=== PATIENT | male | born 1945 | race African-American/Black ===

== ENCOUNTER 2022-07-26 05:38 | Inpatient (IN) ==
[2022-07-18 13:31] LABS: Basophils % 0.3 % (0.0-0.8); Eosinophils # 0.1 10*3/uL (0.0-0.87); Hematocrit 26.7 VOL% (42.0-52.0); Hemoglobin 7.3 GM/DL (14.0-18.0); Immature Granulocytes % 0.3 %; Immature Granulocytes Absolute 0.02 #; Lymphocytes # 1.6 10*3/uL (1.4-4.0); Lymphocytes % 22.5 % (21.2-54.2); Mean Corpuscular HGB Conc 27.3 GM/DL (32-36); Mean Corpuscular Volume 82.4 FL (87-102); Mean Platelet Volume 12.3 FL (9.6-12.0); Monocytes # 0.7 10*3/uL (0.11-0.8); Monocytes % 9.6 % (1.7-12.7); Neutrophils % 65.3 % (38.7-73.9); Platelet Count 241 T/CUMM (130-400); Red Blood Count 3.24 MC/CUMM (3.8-5.5); Red Cell Distribution Width 19.8 % (9.3-17.3); White Blood Count 7.1 T/CUMM (4-12)
[2022-07-18 13:48] LABS: Anisocytosis 1+; Macrocytosis 1+; Microcytosis 1+; Platelet Estimate Adequate; Target Cells Slight
[2022-07-18 13:49] LABS: Hypochromia 1+
[2022-07-18 13:50] LABS: Poikilocytosis Slight
[2022-07-18 13:51] LABS: Calcium 8.4 MG/DL (8.5-10.1)
[2022-07-26] MEDS ORDERED: SODIUM CHLORIDE 0.9% 1,000 ML IV PRN (05:47)
[2022-07-26] MEDS ORDERED: LACTATED RINGERS 1,000 ML IV SCH (06:00)
[2022-07-26] MEDS ORDERED: ERTAPENEM 1,000 MG in SODIUM CHLORIDE 0.9% 100 ML IV ONE (06:00)
[2022-07-26 06:21] LABS: Alanine Aminotransferase 20 U/L (16-61); Albumin 3.6 G/DL (3.4-5.0); Alkaline Phosphatase 79 U/L (45-117); Aspartate Amino Transferase 15 U/L (0-37); Bilirubin,Total < 0.39 MG/DL (0.20-1.00); Blood Urea Nitrogen 14 MG/DL (7-18); Calcium 8.8 MG/DL (8.5-10.1); Carbon Dioxide 27 MMOL/L (21-32); Chloride 111 MMOL/L (98-107); Glucose 109 MG/DL (74-106); Potassium 3.9 MMOL/L (3.5-5.1); Sodium 143 MMOL/L (136-145); Total Protein 7.9 G/DL (6.4-8.2)
[2022-07-26] MEDS ORDERED: TISSUE ADHESIVE 1 EACH APPLICATOR TOP ONE (06:23)
[2022-07-26 06:25] LABS: Basophils % 0.3 % (0.0-0.8); Eosinophils # 0.2 10*3/uL (0.0-0.87); Eosinophils % 2.5 % (0.00-10.9); Hemoglobin 7.2 GM/DL (14.0-18.0); Immature Granulocytes % 0.6 %; Immature Granulocytes Absolute 0.04 #; Lymphocytes # 1.8 10*3/uL (1.4-4.0); Lymphocytes % 25.5 % (21.2-54.2); Mean Corpuscular HGB Conc 27.2 GM/DL (32-36); Mean Corpuscular Volume 81.3 FL (87-102); Mean Platelet Volume 10.8 FL (9.6-12.0); Monocytes # 0.7 10*3/uL (0.11-0.8); Monocytes % 10.4 % (1.7-12.7); Neutrophils % 60.7 % (38.7-73.9); Platelet Count 217 T/CUMM (130-400); Red Blood Count 3.26 MC/CUMM (3.8-5.5); Red Cell Distribution Width 19.7 % (9.3-17.3); White Blood Count 6.9 T/CUMM (4-12)
[2022-07-26 06:27] LABS: Hematocrit 26.5 VOL% (42.0-52.0)
[2022-07-26 06:33] LABS: Eosinophils 1 % (0-10); Lymphocytes 18 % (20-55); Platelet Estimate Adequate; Total Cells Counted 100
[2022-07-26] MEDS ORDERED: GABAPENTIN 400 MG CAPSULE PO ONE (06:33)
[2022-07-26] MEDS ORDERED: DIAZEPAM 5 MG TABLET PO ONE (06:33)
[2022-07-26] MEDS ORDERED: ACETAMINOPHEN 500 MG TABLET PO ONE (06:33)
[2022-07-26] MEDS ORDERED: FAMOTIDINE 20 MG TABLET PO ONE (06:33)
[2022-07-26 06:34] LABS: Hypochromia Slight; Microcytosis Slight
[2022-07-26] MEDS ORDERED: ROCURONIUM 50 MG/5 ML VIAL IV ONE ×2 (06:34→09:42)
[2022-07-26] MEDS ORDERED: fentaNYL 100 MCG/2 ML VIAL ONE ×2 (06:34→09:42)
[2022-07-26] MEDS ORDERED: LIDOCAINE 2% 5 ML VIAL ONE (06:34)
[2022-07-26] MEDS ORDERED: SEVOFLURANE 1 UNIT/15 MINUTE INH ONE ×8 (06:34→10:03)
[2022-07-26] MEDS ORDERED: propofoL 200 MG/20 ML VIAL IV ONE (06:34)
[2022-07-26] MEDS ORDERED: ONDANSETRON 4 MG/2 ML VIAL ONE ×2 (06:34→10:35)
[2022-07-26] MEDS ORDERED: LIDOCAINE 1% 5 ML VIAL ONE (06:56)
[2022-07-26] MEDS ORDERED: ROPIVACAINE 0.5% 30 ML VIAL ONE (06:56)
[2022-07-26] MEDS ORDERED: DEXAMETHASONE 4 MG/1 ML VIAL ONE (06:56)
[2022-07-26] MEDS ORDERED: MIDAZOLAM 2 MG/2 ML VIAL ONE (07:31)
[2022-07-26] MEDS ORDERED: INDOCYANINE GREEN 25 MG VIAL IV ONE (07:52)
[2022-07-26] MEDS ORDERED: SODIUM CHLORIDE 0.9% 1,000 ML IV ONE (10:03)
[2022-07-26] MEDS ORDERED: NEOSTIGMINE 10 MG/10 ML VIAL ONE (10:33)
[2022-07-26] MEDS ORDERED: PHENYLEPHRINE 1 MG/10 ML SYRINGE IV ONE (10:33)
[2022-07-26] MEDS ORDERED: GLYCOPYRROLATE 0.4 MG/2 ML VIAL ONE (10:33)
[2022-07-26] MEDS ORDERED: ONDANSETRON 4 MG/2 ML VIAL IV PRN ×2 (11:09→11:16)
[2022-07-26] MEDS ORDERED: HYDROmorphone 1 MG/1 ML SYRINGE IV PRN ×3 (11:09→11:16)
[2022-07-26] MEDS ORDERED: ACETAMINOPHEN 325 MG TABLET PO PRN (11:16)
[2022-07-26] MEDS ORDERED: KETOROLAC 15 MG/1 ML VIAL IV PRN (11:16)
[2022-07-26 11:20] LABS: Bacteria,Urine Occasional /HPF (Few); Mucus,Urine Occasional /LPF (Occasional); RBC,Urine 1 /HPF (0-4)
[2022-07-26 11:25] LABS: Bilirubin,Urine Negative (Negative); Blood, Urine Negative (Negative); Glucose,Urine (UA) Negative (Negative); Ketones,Urine Negative (Negative); Nitrite,Urine Negative (Negative); Protein,Urine Negative (Negative); Urine Appearance Clear (Clear); Urine Color Light Yellow (Yellow); Urine Urobilinogen 0.2 eU/dL (<2.0)
[2022-07-26 11:45] LABS: Hematocrit 33.8 VOL% (42.0-52.0); Hemoglobin 9.5 GM/DL (14.0-18.0)
[2022-07-26] MEDS: LACTATED RINGERS 1,000 ML IV SCH (11:45)
[2022-07-27] MEDS: LACTATED RINGERS 1,000 ML IV SCH ×4 (03:35→23:05)
[2022-07-27 05:02] LABS: Basophils % 0.2 % (0.0-0.8); Eosinophils % 0.1 % (0.00-10.9); Hematocrit 27.8 VOL% (42.0-52.0); Immature Granulocytes % 0.4 %; Immature Granulocytes Absolute 0.05 #; Lymphocytes # 0.9 10*3/uL (1.4-4.0); Lymphocytes % 7.6 % (21.2-54.2); Mean Corpuscular HGB Conc 28.8 GM/DL (32-36); Mean Corpuscular Volume 81.8 FL (87-102); Mean Platelet Volume 11.6 FL (9.6-12.0); Monocytes # 0.8 10*3/uL (0.11-0.8); Neutrophils % 84.7 % (38.7-73.9); Platelet Count 181 T/CUMM (130-400); Red Cell Distribution Width 18.4 % (9.3-17.3); White Blood Count 11.7 T/CUMM (4-12)
[2022-07-27 05:20] LABS: Calcium 7.8 MG/DL (8.5-10.1); Osmolality,Calculated 286.8 MOS/KG (273-304); Potassium 3.7 MMOL/L (3.5-5.1)
[2022-07-27 05:32] LABS: Hypochromia 1+; Microcytosis 1+; Target Cells Slight
[2022-07-27] MEDS: PANTOPRAZOLE 40 MG VIAL IV SCH (08:07)
[2022-07-27] MEDS ORDERED: FLUTICASONE 50 MCG NASAL SPRAY 16 GM BOTTLE BOTH NARES PRN (12:41)
[2022-07-27] MEDS: hydrALAZINE 25 MG TABLET PO SCH (20:27)
[2022-07-28] MEDS: LEVOTHYROXINE 75 MCG TABLET PO SCH (06:26)
[2022-07-28] MEDS: LACTATED RINGERS 1,000 ML IV SCH ×2 (06:28→15:26)
[2022-07-28 06:45] LABS: Calcium 8.4 MG/DL (8.5-10.1); Osmolality,Calculated 278.4 MOS/KG (273-304); Potassium 3.7 MMOL/L (3.5-5.1)
[2022-07-28 06:53] LABS: Basophils % 0.2 % (0.0-0.8); Eosinophils % 0.3 % (0.00-10.9); Hematocrit 30.2 VOL% (42.0-52.0); Hemoglobin 8.7 GM/DL (14.0-18.0); Immature Granulocytes % 0.5 %; Immature Granulocytes Absolute 0.06 #; Lymphocytes # 0.9 10*3/uL (1.4-4.0); Mean Corpuscular HGB Conc 28.8 GM/DL (32-36); Mean Corpuscular Volume 81.6 FL (87-102); Mean Platelet Volume 12.6 FL (9.6-12.0); Monocytes # 0.9 10*3/uL (0.11-0.8); Monocytes % 7.7 % (1.7-12.7); Neutrophils % 83.3 % (38.7-73.9); Platelet Count 207 T/CUMM (130-400); Red Cell Distribution Width 18.4 % (9.3-17.3); White Blood Count 11.4 T/CUMM (4-12)
[2022-07-28 06:57] LABS: Anisocytosis 1+; Platelet Estimate Normal; Target Cells Few
[2022-07-28 08:09] LABS: Hypochromia 1+; Macrocytosis 1+
[2022-07-28] MEDS: hydrALAZINE 25 MG TABLET PO SCH ×2 (09:23→20:30)
[2022-07-28] MEDS: PANTOPRAZOLE 40 MG VIAL IV SCH (09:23)
[2022-07-28] MEDS: DEXT 5% NACL 0.45% KCL 40 MEQ 40 MEQ/1,000 ML BAG IV SCH (15:30)
[2022-07-28] MEDS: ENOXAPARIN 40 MG/0.4 ML SYRINGE SUBCUT SCH (20:30)
[2022-07-29] MEDS: DEXT 5% NACL 0.45% KCL 40 MEQ 40 MEQ/1,000 ML BAG IV SCH ×2 (01:48→16:11)
[2022-07-29] MEDS: LEVOTHYROXINE 75 MCG TABLET PO SCH (05:53)
[2022-07-29] MEDS: hydrALAZINE 25 MG TABLET PO SCH ×2 (08:53→20:40)
[2022-07-29] MEDS: PANTOPRAZOLE 40 MG VIAL IV SCH (08:53)
[2022-07-29] MEDS: ENOXAPARIN 40 MG/0.4 ML SYRINGE SUBCUT SCH (20:41)
[2022-07-30] MEDS: DEXT 5% NACL 0.45% KCL 40 MEQ 40 MEQ/1,000 ML BAG IV SCH (03:27)
[2022-07-30] MEDS: LEVOTHYROXINE 75 MCG TABLET PO SCH (06:11)
[2022-07-30] MEDS: PANTOPRAZOLE 40 MG VIAL IV SCH (08:37)
[2022-07-30] MEDS: hydrALAZINE 25 MG TABLET PO SCH ×2 (08:37→20:41)
[2022-07-30] MEDS: CALCIUM CARBONATE CHEW 500 MG TABLET PO PRN ×2 (13:12→20:46)
[2022-07-30] MEDS: DOCUSATE SODIUM 100 MG CAPSULE PO SCH (20:41)
[2022-07-30] MEDS: ENOXAPARIN 40 MG/0.4 ML SYRINGE SUBCUT SCH (20:42)
[2022-07-31] MEDS: CALCIUM CARBONATE CHEW 500 MG TABLET PO PRN (01:57)
[2022-07-31] MEDS: LEVOTHYROXINE 75 MCG TABLET PO SCH (06:10)
[2022-07-31 07:51] LABS: Calcium 8.7 MG/DL (8.5-10.1); Potassium 4.3 MMOL/L (3.5-5.1)
[2022-07-31 07:59] LABS: Basophils % 0.2 % (0.0-0.8); Eosinophils # 0.2 10*3/uL (0.0-0.87); Eosinophils % 1.7 % (0.00-10.9); Hematocrit 32.3 VOL% (42.0-52.0); Hemoglobin 9.3 GM/DL (14.0-18.0); Immature Granulocytes % 0.5 %; Immature Granulocytes Absolute 0.05 #; Lymphocytes # 0.7 10*3/uL (1.4-4.0); Lymphocytes % 6.4 % (21.2-54.2); Mean Corpuscular HGB Conc 28.8 GM/DL (32-36); Mean Platelet Volume 11.3 FL (9.6-12.0); Monocytes % 9.8 % (1.7-12.7); Neutrophils % 81.4 % (38.7-73.9); Platelet Count 303 T/CUMM (130-400); Red Blood Count 4.04 MC/CUMM (3.8-5.5); Red Cell Distribution Width 18.5 % (9.3-17.3); White Blood Count 10.3 T/CUMM (4-12)
[2022-07-31 08:10] LABS: Platelet Estimate Normal
[2022-07-31 08:11] LABS: Anisocytosis 1+; Macrocytosis Slight; Poikilocytosis Slight
[2022-07-31] MEDS: PANTOPRAZOLE 40 MG VIAL IV SCH (09:04)
[2022-07-31] MEDS: hydrALAZINE 25 MG TABLET PO SCH ×2 (09:06→20:48)
[2022-07-31] MEDS: POLYETHYLENE GLYCOL POWDER 17 GM PACK PO SCH (09:06)
[2022-07-31] MEDS: DOCUSATE SODIUM 100 MG CAPSULE PO SCH ×2 (09:06→21:04)
[2022-07-31] MEDS: LACTATED RINGERS 1,000 ML IV SCH (13:17)
[2022-07-31] MEDS: ENOXAPARIN 40 MG/0.4 ML SYRINGE SUBCUT SCH (20:49)
[2022-08-01] MEDS: LACTATED RINGERS 1,000 ML IV SCH ×3 (00:17→13:10)
[2022-08-01] MEDS: CALCIUM CARBONATE CHEW 500 MG TABLET PO PRN (00:40)
[2022-08-01] MEDS: LEVOTHYROXINE 75 MCG TABLET PO SCH (06:03)
[2022-08-01] MEDS: DOCUSATE SODIUM 100 MG CAPSULE PO SCH ×2 (13:07→20:53)
[2022-08-01] MEDS: hydrALAZINE 25 MG TABLET PO SCH ×2 (13:08→20:53)
[2022-08-01] MEDS: PANTOPRAZOLE 40 MG VIAL IV SCH (13:10)
[2022-08-01] MEDS: POLYETHYLENE GLYCOL POWDER 17 GM PACK PO SCH (13:13)
[2022-08-01] MEDS: INSULIN REGULAR 100 UNIT/ML SUBCUT SCH ×2 (14:02→17:21)
[2022-08-01] MEDS: FAT EMULSION 20% 250 ML IV SCH (14:04)
[2022-08-01] MEDS ORDERED: DEXTROSE 10% 1,000 ML IV PRN (17:00)
[2022-08-01] MEDS ORDERED: MULTIVITAMIN INJ 10 ML in AMINO ACIDS/DEXT/LYTES 5-15% 1,000 ML IV SCH (17:00)
[2022-08-01] MEDS: ENOXAPARIN 40 MG/0.4 ML SYRINGE SUBCUT SCH (21:21)
[2022-08-02] MEDS: LACTATED RINGERS 1,000 ML IV SCH ×3 (00:44→17:21)
[2022-08-02] MEDS: INSULIN REGULAR 100 UNIT/ML SUBCUT SCH ×4 (01:30→18:10)
[2022-08-02 05:15] LABS: Basophils % 0.1 % (0.0-0.8); Eosinophils % 0.4 % (0.00-10.9); Hematocrit 29.4 VOL% (42.0-52.0); Hemoglobin 8.5 GM/DL (14.0-18.0); Immature Granulocytes % 0.5 %; Immature Granulocytes Absolute 0.04 #; Lymphocytes # 0.6 10*3/uL (1.4-4.0); Lymphocytes % 7.5 % (21.2-54.2); Mean Corpuscular HGB Conc 28.9 GM/DL (32-36); Mean Corpuscular Volume 78.6 FL (87-102); Mean Platelet Volume 10.9 FL (9.6-12.0); Monocytes # 0.9 10*3/uL (0.11-0.8); Monocytes % 10.5 % (1.7-12.7); Platelet Count 264 T/CUMM (130-400); Red Blood Count 3.74 MC/CUMM (3.8-5.5); White Blood Count 8.4 T/CUMM (4-12)
[2022-08-02 05:36] LABS: Calcium 8.2 MG/DL (8.5-10.1); Osmolality,Calculated 286.4 MOS/KG (273-304); Potassium 4.1 MMOL/L (3.5-5.1)
[2022-08-02 05:39] LABS: Phosphorous 3.4 MG/DL (2.5-4.9)
[2022-08-02 05:43] LABS: Band Neutrophils 9 % (0-10); Eosinophils 1 % (0-10); Lymphocytes 8 % (20-55); Total Cells Counted 100
[2022-08-02] MEDS: LEVOTHYROXINE 75 MCG TABLET PO SCH (05:43)
[2022-08-02 05:44] LABS: Platelet Estimate Normal
[2022-08-02] MEDS: POLYETHYLENE GLYCOL POWDER 17 GM PACK PO SCH (08:12)
[2022-08-02] MEDS: DOCUSATE SODIUM 100 MG CAPSULE PO SCH ×2 (08:12→20:07)
[2022-08-02] MEDS: PANTOPRAZOLE 40 MG VIAL IV SCH (09:19)
[2022-08-02] MEDS: hydrALAZINE 25 MG TABLET PO SCH ×2 (09:19→20:07)
[2022-08-02] MEDS ORDERED: ROCURONIUM 50 MG/5 ML VIAL IV ONE (13:32)
[2022-08-02] MEDS ORDERED: propofoL 200 MG/20 ML VIAL IV ONE (13:32)
[2022-08-02] MEDS ORDERED: SEVOFLURANE 1 UNIT/15 MINUTE INH ONE (13:32)
[2022-08-02] MEDS ORDERED: ONDANSETRON 4 MG/2 ML VIAL ONE (13:32)
[2022-08-02] MEDS ORDERED: KETAMINE 500 MG/10 ML VIAL ONE (13:32)
[2022-08-02] MEDS ORDERED: SUCCINYLCHOLINE 200 MG/10 ML VIAL ONE (13:32)
[2022-08-02] MEDS ORDERED: fentaNYL 100 MCG/2 ML VIAL ONE (13:32)
[2022-08-02] MEDS ORDERED: LIDOCAINE 2% 5 ML VIAL ONE (13:32)
[2022-08-02] MEDS ORDERED: ETOMIDATE 40 MG/20 ML VIAL IV ONE (13:33)
[2022-08-02] MEDS ORDERED: ceFAZolin 1,000 MG VIAL ONE (14:23)
[2022-08-02] MEDS ORDERED: SUGAMMADEX 200 MG/2 ML VIAL IV ONE (14:40)
[2022-08-02] MEDS ORDERED: LIDOCAINE 1% 5 ML VIAL ONE (14:40)
[2022-08-02] MEDS ORDERED: chlorproMAZINE INJ 25 MG in SODIUM CHLORIDE 0.9% 100 ML IV PRN (16:03)
[2022-08-02 16:19] LABS: Glucose,Urine (UA) Negative (Negative); Ketones,Urine Negative (Negative); Nitrite,Urine Negative (Negative); Protein,Urine 30 mg/dL (Negative); RBC,Urine <1 /HPF (0-4); Squamous Epithelial Cell,Urine Occasional /HPF (0-10); Urine Appearance Clear (Clear); Urine Color Yellow (Yellow); Urine Specific Gravity 1.015 (1.001-1.035); Urine pH 5.5 (4.5-8.0)
[2022-08-02 16:20] LABS: Bilirubin,Urine Negative (Negative); Blood, Urine Negative (Negative); Urine Urobilinogen 0.2 eU/dL (<2.0)
[2022-08-02] MEDS: MULTIVITAMIN INJ 10 ML in AMINO ACIDS/DEXT/LYTES 5-15% 2,000 ML IV SCH (17:00)
[2022-08-02] MEDS: FAT EMULSION 20% 250 ML IV SCH (17:20)
[2022-08-02] MEDS: ENOXAPARIN 40 MG/0.4 ML SYRINGE SUBCUT SCH (20:07)
[2022-08-03] MEDS: INSULIN REGULAR 100 UNIT/ML SUBCUT SCH ×5 (00:02→23:41)
[2022-08-03] MEDS: LACTATED RINGERS 1,000 ML IV SCH ×3 (00:02→16:08)
[2022-08-03 05:06] LABS: Basophils % 0.1 % (0.0-0.8); Eosinophils # 0.1 10*3/uL (0.0-0.87); Eosinophils % 1.2 % (0.00-10.9); Hematocrit 26.2 VOL% (42.0-52.0); Hemoglobin 7.4 GM/DL (14.0-18.0); Immature Granulocytes % 0.5 %; Immature Granulocytes Absolute 0.04 #; Lymphocytes # 0.7 10*3/uL (1.4-4.0); Lymphocytes % 8.2 % (21.2-54.2); Mean Corpuscular HGB Conc 28.2 GM/DL (32-36); Mean Corpuscular Volume 81.6 FL (87-102); Mean Platelet Volume 11.3 FL (9.6-12.0); Monocytes # 0.7 10*3/uL (0.11-0.8); Monocytes % 9.2 % (1.7-12.7); Neutrophils % 80.8 % (38.7-73.9); Platelet Count 223 T/CUMM (130-400); Red Blood Count 3.21 MC/CUMM (3.8-5.5); Red Cell Distribution Width 19.4 % (9.3-17.3); White Blood Count 8.1 T/CUMM (4-12)
[2022-08-03] MEDS: LEVOTHYROXINE 75 MCG TABLET PO SCH (05:40)
[2022-08-03 05:51] LABS: Band Neutrophils 3 % (0-10); Eosinophils 1 % (0-10); Lymphocytes 11 % (20-55); Platelet Estimate Adequate; Total Cells Counted 100
[2022-08-03 06:22] LABS: Potassium 4.4 MMOL/L (3.5-5.1)
[2022-08-03 06:24] LABS: Calcium 7.9 MG/DL (8.5-10.1)
[2022-08-03 06:25] LABS: Osmolality,Calculated 282.7 MOS/KG (273-304)
[2022-08-03] MEDS: POLYETHYLENE GLYCOL POWDER 17 GM PACK PO SCH ×2 (09:09→09:45)
[2022-08-03] MEDS: hydrALAZINE 25 MG TABLET PO SCH ×3 (09:09→22:50)
[2022-08-03] MEDS: DOCUSATE SODIUM 100 MG CAPSULE PO SCH ×3 (09:09→22:50)
[2022-08-03] MEDS: PANTOPRAZOLE 40 MG VIAL IV SCH (09:10)
[2022-08-03] MEDS ORDERED: HYDROmorphone 1 MG/1 ML SYRINGE IV PRN (10:21)
[2022-08-03] MEDS ORDERED: METOPROLOL TARTRATE 5 MG/5 ML VIAL IV PRN (10:21)
[2022-08-03] MEDS: FAT EMULSION 20% 250 ML IV SCH (14:04)
[2022-08-03] MEDS: MULTIVITAMIN INJ 10 ML in AMINO ACIDS/DEXT/LYTES 5-15% 2,000 ML IV SCH (16:09)
[2022-08-03] MEDS: ENOXAPARIN 40 MG/0.4 ML SYRINGE SUBCUT SCH (20:50)
[2022-08-04] MEDS: LACTATED RINGERS 1,000 ML IV SCH ×4 (00:02→16:27)
[2022-08-04] MEDS: INSULIN REGULAR 100 UNIT/ML SUBCUT SCH ×4 (05:52→23:44)
[2022-08-04 07:12] LABS: Basophils % 0.1 % (0.0-0.8); Eosinophils # 0.1 10*3/uL (0.0-0.87); Eosinophils % 0.7 % (0.00-10.9); Hematocrit 28.7 VOL% (42.0-52.0); Immature Granulocytes % 0.8 %; Immature Granulocytes Absolute 0.08 #; Lymphocytes # 0.7 10*3/uL (1.4-4.0); Lymphocytes % 6.9 % (21.2-54.2); Mean Corpuscular HGB Conc 28.2 GM/DL (32-36); Mean Corpuscular Volume 80.2 FL (87-102); Mean Platelet Volume 11.6 FL (9.6-12.0); Monocytes # 0.7 10*3/uL (0.11-0.8); Monocytes % 7.4 % (1.7-12.7); Neutrophils % 84.1 % (38.7-73.9); Platelet Count 279 T/CUMM (130-400); Red Blood Count 3.58 MC/CUMM (3.8-5.5); Red Cell Distribution Width 19.2 % (9.3-17.3); White Blood Count 9.8 T/CUMM (4-12)
[2022-08-04 07:14] LABS: Hemoglobin 8.1 GM/DL (14.0-18.0)
[2022-08-04 07:17] LABS: Eosinophils 1 % (0-10); Hypochromia Slight; Lymphocytes 3 % (20-55); Platelet Estimate Normal; Total Cells Counted 100
[2022-08-04 07:19] LABS: Calcium 7.9 MG/DL (8.5-10.1); Osmolality,Calculated 283.4 MOS/KG (273-304); Potassium 3.9 MMOL/L (3.5-5.1)
[2022-08-04] MEDS: LEVOTHYROXINE 75 MCG TABLET PO SCH (07:19)
[2022-08-04] MEDS: PANTOPRAZOLE 40 MG VIAL IV SCH ×2 (07:53→09:17)
[2022-08-04] MEDS: DOCUSATE SODIUM 100 MG CAPSULE PO SCH ×2 (09:17→20:40)
[2022-08-04] MEDS: POLYETHYLENE GLYCOL POWDER 17 GM PACK PO SCH (09:17)
[2022-08-04] MEDS: hydrALAZINE 25 MG TABLET PO SCH ×2 (09:17→20:39)
[2022-08-04] MEDS: FAT EMULSION 20% 250 ML IV SCH (15:44)
[2022-08-04] MEDS: MULTIVITAMIN INJ 10 ML in AMINO ACIDS/DEXT/LYTES 5-15% 2,000 ML IV SCH (15:45)
[2022-08-04] MEDS: ENOXAPARIN 40 MG/0.4 ML SYRINGE SUBCUT SCH (20:35)
[2022-08-05] MEDS: LACTATED RINGERS 1,000 ML IV SCH ×3 (00:20→20:57)
[2022-08-05 06:01] LABS: Calcium 7.8 MG/DL (8.5-10.1); Osmolality,Calculated 285.3 MOS/KG (273-304); Potassium 3.7 MMOL/L (3.5-5.1)
[2022-08-05 06:12] LABS: Basophils % 0.2 % (0.0-0.8); Eosinophils # 0.1 10*3/uL (0.0-0.87); Eosinophils % 0.8 % (0.00-10.9); Hematocrit 28.5 VOL% (42.0-52.0); Immature Granulocytes % 1.2 %; Immature Granulocytes Absolute 0.14 #; Lymphocytes # 0.8 10*3/uL (1.4-4.0); Mean Corpuscular HGB Conc 27.7 GM/DL (32-36); Mean Corpuscular Volume 81.2 FL (87-102); Mean Platelet Volume 11.8 FL (9.6-12.0); Monocytes # 0.9 10*3/uL (0.11-0.8); Monocytes % 7.7 % (1.7-12.7); Neutrophils % 83.1 % (38.7-73.9); Platelet Count 332 T/CUMM (130-400); Red Blood Count 3.51 MC/CUMM (3.8-5.5); Red Cell Distribution Width 19.5 % (9.3-17.3)
[2022-08-05 06:24] LABS: Hemoglobin 7.9 GM/DL (14.0-18.0)
[2022-08-05] MEDS: INSULIN REGULAR 100 UNIT/ML SUBCUT SCH ×3 (06:40→17:28)
[2022-08-05 07:06] LABS: Eosinophils 2 % (0-10); Hypochromia 1+; Lymphocytes 3 % (20-55); Polychromasia Slight; Total Cells Counted 100
[2022-08-05 07:07] LABS: Microcytosis 1+; Platelet Estimate Normal; Target Cells Slight
[2022-08-05] MEDS: LEVOTHYROXINE 75 MCG TABLET PO SCH (07:46)
[2022-08-05] MEDS: PIPERACILLIN/TAZOBACTAM 3,375 MG in SODIUM CHLORIDE 0.9% 100 ML IV SCH ×2 (09:56→17:43)
[2022-08-05] MEDS: hydrALAZINE 25 MG TABLET PO SCH ×2 (10:51→20:50)
[2022-08-05] MEDS: DOCUSATE SODIUM 100 MG CAPSULE PO SCH ×2 (10:51→20:50)
[2022-08-05] MEDS: POLYETHYLENE GLYCOL POWDER 17 GM PACK PO SCH (10:52)
[2022-08-05] MEDS: PANTOPRAZOLE 40 MG VIAL IV SCH (11:04)
[2022-08-05] MEDS: MULTIVITAMIN INJ 10 ML in AMINO ACIDS/DEXT/LYTES 5-15% 2,000 ML IV SCH (14:01)
[2022-08-05] MEDS: FAT EMULSION 20% 250 ML IV SCH (14:02)
[2022-08-05] MEDS: ENOXAPARIN 40 MG/0.4 ML SYRINGE SUBCUT SCH (20:51)
[2022-08-06] MEDS: PIPERACILLIN/TAZOBACTAM 3,375 MG in SODIUM CHLORIDE 0.9% 100 ML IV SCH ×3 (00:52→17:40)
[2022-08-06] MEDS: LACTATED RINGERS 1,000 ML IV SCH ×2 (00:52→10:37)
[2022-08-06] MEDS: INSULIN REGULAR 100 UNIT/ML SUBCUT SCH ×5 (01:11→23:48)
[2022-08-06] MEDS: LEVOTHYROXINE 75 MCG TABLET PO SCH (06:01)
[2022-08-06 06:13] LABS: Basophils % 0.2 % (0.0-0.8); Eosinophils # 0.2 10*3/uL (0.0-0.87); Eosinophils % 1.7 % (0.00-10.9); Immature Granulocytes % 1.7 %; Immature Granulocytes Absolute 0.16 #; Lymphocytes # 0.9 10*3/uL (1.4-4.0); Lymphocytes % 9.4 % (21.2-54.2); Mean Corpuscular HGB Conc 28.3 GM/DL (32-36); Mean Corpuscular Volume 81.1 FL (87-102); Mean Platelet Volume 11.7 FL (9.6-12.0); Monocytes # 0.9 10*3/uL (0.11-0.8); Monocytes % 9.4 % (1.7-12.7); Neutrophils % 77.6 % (38.7-73.9); Platelet Count 343 T/CUMM (130-400); Red Cell Distribution Width 19.5 % (9.3-17.3); White Blood Count 9.6 T/CUMM (4-12)
[2022-08-06 06:16] LABS: Hemoglobin 8.5 GM/DL (14.0-18.0)
[2022-08-06 06:33] LABS: Calcium 8.4 MG/DL (8.5-10.1); Osmolality,Calculated 284.3 MOS/KG (273-304); Potassium 4.3 MMOL/L (3.5-5.1)
[2022-08-06] MEDS: PANTOPRAZOLE 40 MG VIAL IV SCH (09:28)
[2022-08-06] MEDS: hydrALAZINE 25 MG TABLET PO SCH ×2 (09:28→20:56)
[2022-08-06] MEDS: DOCUSATE SODIUM 100 MG CAPSULE PO SCH ×2 (09:28→20:56)
[2022-08-06] MEDS: POLYETHYLENE GLYCOL POWDER 17 GM PACK PO SCH (09:29)
[2022-08-06] MEDS: FAT EMULSION 20% 250 ML IV SCH (13:34)
[2022-08-06] MEDS: MULTIVITAMIN INJ 10 ML in AMINO ACIDS/DEXT/LYTES 5-15% 2,000 ML IV SCH (13:34)
[2022-08-06] MEDS: ENOXAPARIN 40 MG/0.4 ML SYRINGE SUBCUT SCH (20:56)
[2022-08-07] MEDS: INSULIN REGULAR 100 UNIT/ML SUBCUT SCH ×3 (05:22→18:15)
[2022-08-07] MEDS: LEVOTHYROXINE 75 MCG TABLET PO SCH (05:29)
[2022-08-07] MEDS: DOCUSATE SODIUM 100 MG CAPSULE PO SCH ×2 (08:53→20:45)
[2022-08-07] MEDS: POLYETHYLENE GLYCOL POWDER 17 GM PACK PO SCH (08:53)
[2022-08-07] MEDS: PANTOPRAZOLE 40 MG VIAL IV SCH (08:53)
[2022-08-07] MEDS: hydrALAZINE 25 MG TABLET PO SCH ×2 (08:53→20:45)
[2022-08-07] MEDS: PIPERACILLIN/TAZOBACTAM 3,375 MG in SODIUM CHLORIDE 0.9% 100 ML IV SCH ×3 (08:53→17:26)
[2022-08-07] MEDS: CALCIUM CARBONATE CHEW 500 MG TABLET PO PRN ×2 (15:36→20:45)
[2022-08-07] MEDS: ENOXAPARIN 40 MG/0.4 ML SYRINGE SUBCUT SCH (21:16)
[2022-08-08] MEDS: PIPERACILLIN/TAZOBACTAM 3,375 MG in SODIUM CHLORIDE 0.9% 100 ML IV SCH ×2 (01:30→08:16)
[2022-08-08] MEDS: INSULIN REGULAR 100 UNIT/ML SUBCUT SCH ×3 (02:19→11:46)
[2022-08-08] MEDS: LEVOTHYROXINE 75 MCG TABLET PO SCH (06:05)
[2022-08-08] MEDS: hydrALAZINE 25 MG TABLET PO SCH (08:15)
[2022-08-08] MEDS: POLYETHYLENE GLYCOL POWDER 17 GM PACK PO SCH (08:16)
[2022-08-08] MEDS: PANTOPRAZOLE 40 MG VIAL IV SCH (08:16)
[2022-08-08] MEDS: DOCUSATE SODIUM 100 MG CAPSULE PO SCH (08:16)
[2022-08-08 12:06] VITALS: BP 141/80
== END 2022-08-08 13:30 | disposition home health service (06) | DRG 330 ==
LOC: N.OR 05:38 → N.SDSINP 05:39 → N.3E 12:02 → N.CC 08-02 15:40 → N.3E 08-03 16:16
PROVIDERS: ADMIT Surgery; ATTEND Surgery

== ENCOUNTER 2022-08-09 18:43 | Inpatient (IN) ==
[2022-08-09] MEDS ORDERED: ONDANSETRON 4 MG/2 ML VIAL IV STA (19:32)
[2022-08-09] MEDS ORDERED: SODIUM CHLORIDE 0.9% 1,000 ML IV STA ×2 (19:32→20:53)
[2022-08-09 20:23] LABS: Amorphous Crystals,Urine Occasional /HPF (Few); Bacteria,Urine Occasional /HPF (Few); Granular Casts,Urine 21 /LPF (0-1); Hyaline Casts,Urine 14 /LPF (0-3); Mucus,Urine Occasional /LPF (Occasional); RBC,Urine 4 /HPF (0-4); Squamous Epithelial Cell,Urine Occasional /HPF (0-10)
[2022-08-09 20:24] LABS: Alanine Aminotransferase 63 U/L (16-61); Alkaline Phosphatase 90 U/L (45-117); Amylase 95 U/L (25-115); Aspartate Amino Transferase 40 U/L (0-37); Bilirubin,Total < 0.39 MG/DL (0.20-1.00); Blood Urea Nitrogen 46 MG/DL (7-18); Calcium 8.6 MG/DL (8.5-10.1); Carbon Dioxide 24 MMOL/L (21-32); Chloride 108 MMOL/L (98-107); Glucose 194 MG/DL (74-106); Osmolality,Calculated 293.5 MOS/KG (273-304); Potassium 4.8 MMOL/L (3.5-5.1); Sodium 139 MMOL/L (136-145)
[2022-08-09 20:25] LABS: Bilirubin,Urine Small mg/dL (Negative); Blood, Urine Negative (Negative); Glucose,Urine (UA) Negative (Negative); Ketones,Urine Small mg/dL (Negative); Nitrite,Urine Negative (Negative); Protein,Urine 100 mg/dL (Negative); Urine Appearance Clear (Clear); Urine Color Yellow (Yellow); Urine Specific Gravity >= 1.030 (1.001-1.035); Urine Urobilinogen 0.2 eU/dL (<2.0); Urine pH 5.5 (4.5-8.0)
[2022-08-09 20:26] LABS: Basophils % 0.1 % (0.0-0.8); Eosinophils % 0.1 % (0.00-10.9); Hematocrit 31.4 VOL% (42.0-52.0); Immature Granulocytes % 0.8 %; Immature Granulocytes Absolute 0.13 #; Lymphocytes # 0.6 10*3/uL (1.4-4.0); Lymphocytes % 3.5 % (21.2-54.2); Mean Corpuscular HGB Conc 28.7 GM/DL (32-36); Mean Corpuscular Volume 79.5 FL (87-102); Mean Platelet Volume 11.9 FL (9.6-12.0); Monocytes # 0.5 10*3/uL (0.11-0.8); Monocytes % 3.2 % (1.7-12.7); NRBC # 0.02 10*3/uL; Neutrophils % 92.3 % (38.7-73.9); Platelet Count 629 T/CUMM (130-400); Red Blood Count 3.95 MC/CUMM (3.8-5.5); Red Cell Distribution Width 20.8 % (9.3-17.3); White Blood Count 16.8 T/CUMM (4-12)
[2022-08-09 20:40] LABS: Anisocytosis 1+; Lymphocytes 4 % (20-55); Total Cells Counted 100
[2022-08-09 20:41] LABS: Hypochromia 1+; Macrocytosis 1+; Microcytosis 1+; Platelet Estimate Increased; Polychromasia Slight
[2022-08-09] MEDS ORDERED: PIPERACILLIN/TAZOBACTAM 3,375 MG in SODIUM CHLORIDE 0.9% 100 ML IV STA (20:53)
[2022-08-09] MEDS ORDERED: ONDANSETRON 4 MG/2 ML VIAL IV PRN (21:48)
[2022-08-09] MEDS ORDERED: ACETAMINOPHEN 325 MG TABLET PO PRN (21:48)
[2022-08-09] MEDS: DEXTROSE 5% NACL 0.45% 1,000 ML IV SCH (22:40)
[2022-08-09] MEDS: MORPHINE 2 MG/1 ML SYRINGE IV PRN (22:40)
[2022-08-10] MEDS: MORPHINE 2 MG/1 ML SYRINGE IV PRN (03:16)
[2022-08-10 03:18] LABS: Basophils % 0.2 % (0.0-0.8); Eosinophils % 0.1 % (0.00-10.9); Hematocrit 27.6 VOL% (42.0-52.0); Hemoglobin 7.9 GM/DL (14.0-18.0); Immature Granulocytes % 0.6 %; Immature Granulocytes Absolute 0.11 #; Lymphocytes # 0.8 10*3/uL (1.4-4.0); Lymphocytes % 4.6 % (21.2-54.2); Mean Corpuscular HGB Conc 28.6 GM/DL (32-36); Mean Corpuscular Volume 80.7 FL (87-102); Mean Platelet Volume 11.3 FL (9.6-12.0); Monocytes # 0.9 10*3/uL (0.11-0.8); Monocytes % 5.2 % (1.7-12.7); Neutrophils % 89.3 % (38.7-73.9); Platelet Count 521 T/CUMM (130-400); Red Blood Count 3.42 MC/CUMM (3.8-5.5); Red Cell Distribution Width 21.1 % (9.3-17.3); White Blood Count 17.4 T/CUMM (4-12)
[2022-08-10 03:37] LABS: Alanine Aminotransferase 49 U/L (16-61); Albumin 2.6 G/DL (3.4-5.0); Alkaline Phosphatase 69 U/L (45-117); Aspartate Amino Transferase 26 U/L (0-37); Bilirubin,Total < 0.39 MG/DL (0.20-1.00); Blood Urea Nitrogen 41 MG/DL (7-18); Calcium 7.8 MG/DL (8.5-10.1); Carbon Dioxide 24 MMOL/L (21-32); Chloride 111 MMOL/L (98-107); Glucose 248 MG/DL (74-106); Osmolality,Calculated 298.3 MOS/KG (273-304); Potassium 4.4 MMOL/L (3.5-5.1); Sodium 141 MMOL/L (136-145)
[2022-08-10 03:44] LABS: Band Neutrophils 1 % (0-10); Hypochromia 1+; Lymphocytes 3 % (20-55); Platelet Estimate Increased; Total Cells Counted 100
[2022-08-10 03:45] LABS: Microcytosis Slight
[2022-08-10] MEDS: PIPERACILLIN/TAZOBACTAM 3,375 MG in SODIUM CHLORIDE 0.9% 100 ML IV SCH ×2 (04:58→16:57)
[2022-08-10] MEDS: LEVOTHYROXINE 75 MCG TABLET PO SCH (06:15)
[2022-08-10] MEDS: DEXTROSE 5% NACL 0.45% 1,000 ML IV SCH ×2 (06:15→16:56)
[2022-08-10] MEDS ORDERED: PANTOPRAZOLE 40 MG VIAL IV SCH (09:00)
[2022-08-10] MEDS: FENOFIBRATE 160 MG TABLET PO SCH (10:03)
[2022-08-10] MEDS ORDERED: ONDANSETRON 4 MG/2 ML VIAL IV PRN ×2 (10:25→14:38)
[2022-08-10] MEDS ORDERED: ACETAMINOPHEN 325 MG TABLET PO PRN (10:25)
[2022-08-10] MEDS ORDERED: LIDOCAINE 2% 5 ML VIAL ONE ×2 (11:30)
[2022-08-10] MEDS ORDERED: fentaNYL 250 MCG/5 ML VIAL ONE (11:30)
[2022-08-10] MEDS ORDERED: ROCURONIUM 50 MG/5 ML VIAL IV ONE (11:30)
[2022-08-10] MEDS ORDERED: propofoL 200 MG/20 ML VIAL IV ONE ×2 (11:30)
[2022-08-10] MEDS ORDERED: SUCCINYLCHOLINE 200 MG/10 ML VIAL ONE (11:30)
[2022-08-10] MEDS ORDERED: MIDAZOLAM 2 MG/2 ML VIAL ONE (11:30)
[2022-08-10] MEDS ORDERED: BUPIVACAINE MPF 0.25% 30 ML VIAL ONE (11:38)
[2022-08-10] MEDS ORDERED: fentaNYL 100 MCG/2 ML VIAL ONE (11:39)
[2022-08-10] MEDS ORDERED: DEXAMETHASONE 4 MG/1 ML VIAL ONE (11:39)
[2022-08-10] MEDS ORDERED: LIDOCAINE 1% 5 ML VIAL ONE (11:39)
[2022-08-10] MEDS ORDERED: ETOMIDATE 40 MG/20 ML VIAL IV ONE (12:35)
[2022-08-10] MEDS ORDERED: methylPREDNISolone SOD SUC 125 MG/2 ML VIAL ONE (12:45)
[2022-08-10] MEDS ORDERED: METOPROLOL TARTRATE 5 MG/5 ML VIAL IV ONE (13:05)
[2022-08-10] MEDS ORDERED: GLYCOPYRROLATE 0.4 MG/2 ML VIAL ONE (14:01)
[2022-08-10] MEDS ORDERED: NEOSTIGMINE 10 MG/10 ML VIAL ONE (14:02)
[2022-08-10] MEDS ORDERED: PHENYLEPHRINE 1 MG/10 ML SYRINGE IV ONE (14:10)
[2022-08-10] MEDS ORDERED: HYDROmorphone 1 MG/1 ML SYRINGE ONE (14:28)
[2022-08-10] MEDS: HYDROmorphone 1 MG/1 ML SYRINGE IV PRN ×4 (14:30→15:05)
[2022-08-10] MEDS ORDERED: diphenhydrAMINE 50 MG/1 ML VIAL IV PRN (14:38)
[2022-08-10] MEDS ORDERED: MEPERIDINE 25 MG/1 ML VIAL IV PRN (14:38)
[2022-08-10] MEDS ORDERED: PROMETHAZINE INJ 25 MG in SODIUM CHLORIDE 0.9% 50 ML IV PRN (14:38)
[2022-08-10] MEDS ORDERED: DEXTROSE 10% 1,000 ML IV PRN (17:00)
[2022-08-10] MEDS ORDERED: AMINO ACIDS IV SCH (17:00)
[2022-08-10] MEDS ORDERED: DEXT IV SCH (17:00)
[2022-08-10] MEDS ORDERED: LYTES IV SCH (17:00)
[2022-08-10] MEDS: INSULIN REGULAR 100 UNIT/ML SUBCUT SCH (18:35)
[2022-08-11] MEDS: PIPERACILLIN/TAZOBACTAM 3,375 MG in SODIUM CHLORIDE 0.9% 100 ML IV SCH ×3 (00:35→17:32)
[2022-08-11] MEDS: INSULIN REGULAR 100 UNIT/ML SUBCUT SCH ×4 (00:54→19:24)
[2022-08-11] MEDS: MORPHINE 2 MG/1 ML SYRINGE IV PRN ×2 (04:31→21:55)
[2022-08-11 05:46] LABS: Alanine Aminotransferase 32 U/L (16-61); Alkaline Phosphatase 59 U/L (45-117); Aspartate Amino Transferase 17 U/L (0-37); Bilirubin,Total < 0.39 MG/DL (0.20-1.00); Blood Urea Nitrogen 39 MG/DL (7-18); Calcium 7.6 MG/DL (8.5-10.1); Carbon Dioxide 21 MMOL/L (21-32); Chloride 113 MMOL/L (98-107); Glucose 182 MG/DL (74-106); Osmolality,Calculated 292.4 MOS/KG (273-304); Potassium 4.8 MMOL/L (3.5-5.1); Sodium 140 MMOL/L (136-145); Total Protein 6.4 G/DL (6.4-8.2)
[2022-08-11] MEDS: LEVOTHYROXINE 75 MCG TABLET PO SCH (06:01)
[2022-08-11 06:04] LABS: Basophils % 0.1 % (0.0-0.8); Hematocrit 30.7 VOL% (42.0-52.0); Hemoglobin 8.6 GM/DL (14.0-18.0); Immature Granulocytes % 0.6 %; Immature Granulocytes Absolute 0.12 #; Lymphocytes # 0.7 10*3/uL (1.4-4.0); Lymphocytes % 3.6 % (21.2-54.2); Mean Corpuscular Volume 82.3 FL (87-102); Monocytes # 0.8 10*3/uL (0.11-0.8); Monocytes % 4.4 % (1.7-12.7); Neutrophils % 91.3 % (38.7-73.9); Platelet Count 410 T/CUMM (130-400); Red Blood Count 3.73 MC/CUMM (3.8-5.5); Red Cell Distribution Width 20.5 % (9.3-17.3)
[2022-08-11 06:18] LABS: Band Neutrophils 5 % (0-10); Hypochromia 1+; Lymphocytes 2 % (20-55); Polychromasia Slight; Total Cells Counted 100
[2022-08-11 06:19] LABS: Macrocytosis 1+
[2022-08-11] MEDS: FENOFIBRATE 160 MG TABLET PO SCH (09:44)
[2022-08-11] MEDS: PANTOPRAZOLE 40 MG TABLET PO SCH (09:45)
[2022-08-11] MEDS: ENOXAPARIN 40 MG/0.4 ML SYRINGE SUBCUT SCH (12:50)
[2022-08-11] MEDS: FAT EMULSION 20% 250 ML IV SCH (14:17)
[2022-08-11] MEDS: AMINO ACIDS/DEXT/LYTES 5-15% 2,000 ML IV SCH (17:33)
[2022-08-12] MEDS: PIPERACILLIN/TAZOBACTAM 3,375 MG in SODIUM CHLORIDE 0.9% 100 ML IV SCH ×3 (00:30→17:47)
[2022-08-12] MEDS: INSULIN REGULAR 100 UNIT/ML SUBCUT SCH ×4 (01:23→18:42)
[2022-08-12 06:08] LABS: Basophils % 0.1 % (0.0-0.8); Hematocrit 26.4 VOL% (42.0-52.0); Hemoglobin 7.5 GM/DL (14.0-18.0); Immature Granulocytes % 0.9 %; Immature Granulocytes Absolute 0.16 #; Lymphocytes % 5.7 % (21.2-54.2); Mean Corpuscular HGB Conc 28.4 GM/DL (32-36); Mean Corpuscular Volume 81.7 FL (87-102); Mean Platelet Volume 10.8 FL (9.6-12.0); Monocytes # 0.7 10*3/uL (0.11-0.8); Monocytes % 4.3 % (1.7-12.7); NRBC # 0.02 10*3/uL; Platelet Count 320 T/CUMM (130-400); Red Blood Count 3.23 MC/CUMM (3.8-5.5); Red Cell Distribution Width 20.7 % (9.3-17.3)
[2022-08-12] MEDS: LEVOTHYROXINE 75 MCG TABLET PO SCH (06:33)
[2022-08-12 06:40] LABS: Albumin 1.9 G/DL (3.4-5.0); Bilirubin,Total 0.4 MG/DL (0.20-1.00); Calcium 7.6 MG/DL (8.5-10.1); Osmolality,Calculated 293.8 MOS/KG (273-304); Total Protein 6.3 G/DL (6.4-8.2)
[2022-08-12] MEDS: PANTOPRAZOLE 40 MG TABLET PO SCH (09:42)
[2022-08-12] MEDS: FENOFIBRATE 160 MG TABLET PO SCH (09:42)
[2022-08-12] MEDS ORDERED: NALOXONE 0.4 MG/ML VIAL IV PRN (10:44)
[2022-08-12] MEDS ORDERED: METHOCARBAMOL INJ 500 MG in SODIUM CHLORIDE 0.9% 100 ML IV PRN (10:44)
[2022-08-12] MEDS: ENOXAPARIN 40 MG/0.4 ML SYRINGE SUBCUT SCH (12:10)
[2022-08-12] MEDS: HYDROmorphone PCA 30 MG/30 ML SYRINGE IV SCH (12:45)
[2022-08-12] MEDS: FAT EMULSION 20% 250 ML IV SCH (14:04)
[2022-08-12] MEDS: AMINO ACIDS/DEXT/LYTES 5-15% 2,000 ML IV SCH (17:47)
[2022-08-13] MEDS: PIPERACILLIN/TAZOBACTAM 3,375 MG in SODIUM CHLORIDE 0.9% 100 ML IV SCH ×2 (00:02→08:39)
[2022-08-13] MEDS: INSULIN REGULAR 100 UNIT/ML SUBCUT SCH ×4 (00:03→18:41)
[2022-08-13 05:36] LABS: Basophils % 0.1 % (0.0-0.8); Eosinophils % 0.3 % (0.00-10.9); Hematocrit 24.1 VOL% (42.0-52.0); Hemoglobin 6.7 GM/DL (14.0-18.0); Immature Granulocytes Absolute 0.16 #; Lymphocytes # 0.8 10*3/uL (1.4-4.0); Mean Corpuscular HGB Conc 27.8 GM/DL (32-36); Mean Corpuscular Volume 81.7 FL (87-102); Mean Platelet Volume 11.5 FL (9.6-12.0); Monocytes # 0.6 10*3/uL (0.11-0.8); Monocytes % 3.9 % (1.7-12.7); NRBC # 0.02 10*3/uL; Neutrophils % 89.7 % (38.7-73.9); Platelet Count 283 T/CUMM (130-400); Red Blood Count 2.95 MC/CUMM (3.8-5.5); Red Cell Distribution Width 20.6 % (9.3-17.3); White Blood Count 15.5 T/CUMM (4-12)
[2022-08-13 05:39] LABS: Hypochromia 1+; Microcytosis 1+
[2022-08-13 05:40] LABS: Target Cells Slight
[2022-08-13 05:42] LABS: Calcium 7.8 MG/DL (8.5-10.1); Osmolality,Calculated 295.6 MOS/KG (273-304); Potassium 4.1 MMOL/L (3.5-5.1)
[2022-08-13 05:44] LABS: Albumin 1.8 G/DL (3.4-5.0); Bilirubin,Total 0.6 MG/DL (0.20-1.00); Osmolality,Calculated 296.6 MOS/KG (273-304); Total Protein 5.9 G/DL (6.4-8.2)
[2022-08-13] MEDS: LEVOTHYROXINE 75 MCG TABLET PO SCH (05:53)
[2022-08-13] MEDS ORDERED: SODIUM CHLORIDE 0.9% 1,000 ML IV PRN (08:10)
[2022-08-13] MEDS: PANTOPRAZOLE 40 MG TABLET PO SCH (08:40)
[2022-08-13] MEDS: FENOFIBRATE 160 MG TABLET PO SCH (08:54)
[2022-08-13] MEDS: HYDROmorphone PCA 30 MG/30 ML SYRINGE IV SCH (12:01)
[2022-08-13] MEDS: ENOXAPARIN 40 MG/0.4 ML SYRINGE SUBCUT SCH (12:02)
[2022-08-13] MEDS: FAT EMULSION 20% 250 ML IV SCH (12:59)
[2022-08-13] MEDS: AMINO ACIDS/DEXT/LYTES 5-15% 2,000 ML IV SCH (12:59)
[2022-08-13] MEDS: AZITHROMYCIN INJ 500 MG in SODIUM CHLORIDE 0.9% 250 ML IV SCH (17:30)
[2022-08-13] MEDS: cefTRIAXone 1,000 MG in SODIUM CHLORIDE 0.9% 100 ML IV SCH (22:38)
[2022-08-14] MEDS: INSULIN REGULAR 100 UNIT/ML SUBCUT SCH ×4 (00:35→18:24)
[2022-08-14 04:23] LABS: Basophils % 0.2 % (0.0-0.8); Eosinophils # 0.1 10*3/uL (0.0-0.87); Eosinophils % 0.8 % (0.00-10.9); Hematocrit 32.1 VOL% (42.0-52.0); Hemoglobin 9.4 GM/DL (14.0-18.0); Immature Granulocytes % 0.7 %; Immature Granulocytes Absolute 0.08 #; Lymphocytes # 0.8 10*3/uL (1.4-4.0); Lymphocytes % 6.5 % (21.2-54.2); Mean Corpuscular HGB Conc 29.3 GM/DL (32-36); Mean Corpuscular Volume 82.7 FL (87-102); Mean Platelet Volume 10.7 FL (9.6-12.0); Monocytes # 0.4 10*3/uL (0.11-0.8); Monocytes % 3.5 % (1.7-12.7); Neutrophils % 88.3 % (38.7-73.9); Platelet Count 235 T/CUMM (130-400); Red Blood Count 3.88 MC/CUMM (3.8-5.5); Red Cell Distribution Width 18.5 % (9.3-17.3); White Blood Count 11.8 T/CUMM (4-12)
[2022-08-14 04:44] LABS: Calcium 7.7 MG/DL (8.5-10.1); Potassium 3.9 MMOL/L (3.5-5.1)
[2022-08-14] MEDS: LEVOTHYROXINE 75 MCG TABLET PO SCH (05:49)
[2022-08-14] MEDS: FENOFIBRATE 160 MG TABLET PO SCH (10:18)
[2022-08-14] MEDS: PANTOPRAZOLE 40 MG TABLET PO SCH (10:18)
[2022-08-14] MEDS: HYDROmorphone PCA 30 MG/30 ML SYRINGE IV SCH (11:21)
[2022-08-14] MEDS: AMINO ACIDS/DEXT/LYTES 5-15% 2,000 ML IV SCH (12:02)
[2022-08-14] MEDS: ENOXAPARIN 40 MG/0.4 ML SYRINGE SUBCUT SCH (12:25)
[2022-08-14] MEDS: FAT EMULSION 20% 250 ML IV SCH (14:24)
[2022-08-14] MEDS: AZITHROMYCIN INJ 500 MG in SODIUM CHLORIDE 0.9% 250 ML IV SCH (14:24)
[2022-08-14] MEDS: cefTRIAXone 1,000 MG in SODIUM CHLORIDE 0.9% 100 ML IV SCH (21:13)
[2022-08-15] MEDS: INSULIN REGULAR 100 UNIT/ML SUBCUT SCH ×4 (00:53→17:46)
[2022-08-15] MEDS: LEVOTHYROXINE 75 MCG TABLET PO SCH (06:18)
[2022-08-15] MEDS: PANTOPRAZOLE 40 MG TABLET PO SCH (10:14)
[2022-08-15] MEDS: FENOFIBRATE 160 MG TABLET PO SCH (10:14)
[2022-08-15] MEDS ORDERED: HYDROmorphone 1 MG/1 ML SYRINGE IV PRN (10:33)
[2022-08-15] MEDS: AMINO ACIDS/DEXT/LYTES 5-15% 2,000 ML IV SCH (11:01)
[2022-08-15] MEDS: AZITHROMYCIN INJ 500 MG in SODIUM CHLORIDE 0.9% 250 ML IV SCH (15:35)
[2022-08-15] MEDS: FAT EMULSION 20% 250 ML IV SCH (15:36)
[2022-08-15] MEDS: ENOXAPARIN 40 MG/0.4 ML SYRINGE SUBCUT SCH (15:36)
[2022-08-15] MEDS: cefTRIAXone 1,000 MG in SODIUM CHLORIDE 0.9% 100 ML IV SCH (22:11)
[2022-08-16] MEDS: INSULIN REGULAR 100 UNIT/ML SUBCUT SCH ×4 (03:12→18:47)
[2022-08-16] MEDS: LEVOTHYROXINE 75 MCG TABLET PO SCH (06:36)
[2022-08-16 08:12] LABS: Osmolality,Calculated 285.3 MOS/KG (273-304); Potassium 3.8 MMOL/L (3.5-5.1)
[2022-08-16 08:18] LABS: Basophils % 0.1 % (0.0-0.8); Eosinophils # 0.1 10*3/uL (0.0-0.87); Eosinophils % 1.3 % (0.00-10.9); Hematocrit 33.5 VOL% (42.0-52.0); Immature Granulocytes % 0.6 %; Immature Granulocytes Absolute 0.05 #; Lymphocytes # 0.7 10*3/uL (1.4-4.0); Lymphocytes % 8.4 % (21.2-54.2); Monocytes # 0.4 10*3/uL (0.11-0.8); Neutrophils % 84.6 % (38.7-73.9); Platelet Count 217 T/CUMM (130-400); Red Blood Count 3.99 MC/CUMM (3.8-5.5); Red Cell Distribution Width 18.9 % (9.3-17.3); White Blood Count 8.2 T/CUMM (4-12)
[2022-08-16 08:21] LABS: Hemoglobin 9.7 GM/DL (14.0-18.0)
[2022-08-16] MEDS: AMINO ACIDS/DEXT/LYTES 5-15% 2,000 ML IV SCH (10:00)
[2022-08-16] MEDS: PANTOPRAZOLE 40 MG TABLET PO SCH (10:53)
[2022-08-16] MEDS: FENOFIBRATE 160 MG TABLET PO SCH (10:53)
[2022-08-16] MEDS: ENOXAPARIN 40 MG/0.4 ML SYRINGE SUBCUT SCH (15:07)
[2022-08-16] MEDS: FAT EMULSION 20% 250 ML IV SCH (15:08)
[2022-08-16] MEDS: AZITHROMYCIN INJ 500 MG in SODIUM CHLORIDE 0.9% 250 ML IV SCH (15:08)
[2022-08-16] MEDS: cefTRIAXone 1,000 MG in SODIUM CHLORIDE 0.9% 100 ML IV SCH (21:30)
[2022-08-17] MEDS: INSULIN REGULAR 100 UNIT/ML SUBCUT SCH ×4 (02:07→18:55)
[2022-08-17] MEDS: LEVOTHYROXINE 75 MCG TABLET PO SCH (05:57)
[2022-08-17] MEDS: FENOFIBRATE 160 MG TABLET PO SCH (09:42)
[2022-08-17] MEDS: PANTOPRAZOLE 40 MG TABLET PO SCH (09:42)
[2022-08-17] MEDS: AMINO ACIDS/DEXT/LYTES 5-15% 2,000 ML IV SCH (09:57)
[2022-08-17] MEDS: ENOXAPARIN 40 MG/0.4 ML SYRINGE SUBCUT SCH (13:25)
[2022-08-17] MEDS: AZITHROMYCIN INJ 500 MG in SODIUM CHLORIDE 0.9% 250 ML IV SCH (17:00)
[2022-08-17] MEDS: FAT EMULSION 20% 250 ML IV SCH (17:01)
[2022-08-17] MEDS: cefTRIAXone 1,000 MG in SODIUM CHLORIDE 0.9% 100 ML IV SCH (21:23)
[2022-08-18] MEDS: INSULIN REGULAR 100 UNIT/ML SUBCUT SCH ×4 (00:57→22:27)
[2022-08-18] MEDS: AMINO ACIDS/DEXT/LYTES 5-15% 2,000 ML IV SCH (04:51)
[2022-08-18] MEDS: PANTOPRAZOLE 40 MG TABLET PO SCH (09:29)
[2022-08-18] MEDS: FENOFIBRATE 160 MG TABLET PO SCH (09:29)
[2022-08-18] MEDS: LEVOTHYROXINE 75 MCG TABLET PO SCH (09:34)
[2022-08-18] MEDS: ENOXAPARIN 40 MG/0.4 ML SYRINGE SUBCUT SCH (13:35)
[2022-08-18] MEDS: AZITHROMYCIN INJ 500 MG in SODIUM CHLORIDE 0.9% 250 ML IV SCH (13:36)
[2022-08-18] MEDS: FAT EMULSION 20% 250 ML IV SCH (17:22)
[2022-08-18] MEDS: cefTRIAXone 1,000 MG in SODIUM CHLORIDE 0.9% 100 ML IV SCH (22:28)
[2022-08-19] MEDS: LEVOTHYROXINE 75 MCG TABLET PO SCH (06:03)
[2022-08-19] MEDS: AMINO ACIDS/DEXT/LYTES 5-15% 2,000 ML IV SCH (07:46)
[2022-08-19] MEDS: INSULIN REGULAR 100 UNIT/ML SUBCUT SCH ×4 (07:54→22:23)
[2022-08-19] MEDS: FENOFIBRATE 160 MG TABLET PO SCH (08:57)
[2022-08-19] MEDS: PANTOPRAZOLE 40 MG TABLET PO SCH (08:57)
[2022-08-19] MEDS: ENOXAPARIN 40 MG/0.4 ML SYRINGE SUBCUT SCH (11:34)
[2022-08-19] MEDS: AZITHROMYCIN INJ 500 MG in SODIUM CHLORIDE 0.9% 250 ML IV SCH (13:30)
[2022-08-19] MEDS: cefTRIAXone 1,000 MG in SODIUM CHLORIDE 0.9% 100 ML IV SCH (22:06)
[2022-08-20] MEDS: LEVOTHYROXINE 75 MCG TABLET PO SCH (05:54)
[2022-08-20] MEDS: INSULIN REGULAR 100 UNIT/ML SUBCUT SCH (07:58)
[2022-08-20] MEDS: FENOFIBRATE 160 MG TABLET PO SCH (08:43)
[2022-08-20] MEDS: PANTOPRAZOLE 40 MG TABLET PO SCH (08:44)
[2022-08-20 12:28] VITALS: BP 145/80
[2022-08-20] MEDS: ENOXAPARIN 40 MG/0.4 ML SYRINGE SUBCUT SCH (13:56)
== END 2022-08-20 15:48 | DRG 335 ==
LOC: N.ED 18:43 → N.EDINP 20:55 → N.TELEN 08-10 10:36
PROVIDERS: ADMIT Surgery; ATTEND Surgery